=== PATIENT | male | born 1985 | race Caucasian/White ===

== ENCOUNTER 2023-08-17 08:09 | Outpatient (CLI) | payer BC, SELFPAY | END 2023-08-17 08:10 | disposition home or self-care (01) | PROVIDERS: PCP Family Medicine; Visit Provider Family Medicine | DX: Z00.00 Encounter for general adult medical examination without abnormal findings (principal); D22.9 Melanocytic nevi, unspecified; Z13.6 Encounter for screening for cardiovascular disorders | CPT/HCPCS: 80048; 80061 ==

== ENCOUNTER 2024-09-27 08:35 | Outpatient (CLI) | payer BC, SELFPAY | END 2024-09-27 08:36 | disposition home or self-care (01) | PROVIDERS: PCP Family Medicine; Visit Provider Family Medicine | DX: E78.5 Hyperlipidemia, unspecified (principal); Z13.228 Encounter for screening for other metabolic disorders | CPT/HCPCS: 80048; 80061 ==

== ENCOUNTER 2025-06-27 12:52 | Day surgery (SDC) | payer BC, SELFPAY ==
[2025-06-27] VITALS (15 sets, daily range): BP systolic 119–148; BP diastolic 55–83; PULSE 81–106; RESP 14–20; TEMP 36.8–39.4; O2SAT 93–100; BMI 24.1
--- OUTSIDE RECORDS SUMMARY | 2025-06-27 12:54 | XMS_ITS | Clinical Summary ---
Author Organization [employer] [facility] Address [address] [place] [address] Care Team Providers Care Live Truck Technician Name Role Phone Dillon Fung MD Primary Care Provider [phone] Allergies No known active allergies Medications HYDROcodone-ac etaminophen, 5-325 mg, (NORCO) per tabletIndicati ons:Encounter for vasectomy Take 1-2 tablets by mouth every 6 hours if needed for Pain Max acetaminophen dose: 4000 mg in 24 hrs. 15 tablet 9 Active Active Problems No known active problems Social History Tobacco Use Types Packs/Day Years Used Date Smoking Tobacco: Never Smokeless Tobacco: Never Alcohol Use Standard Drinks/Week Comments Yes 0 (1 standard drink = 0.6 oz pur e alcohol) Sex and Gender Information Value Date Recorded Sex Assigned at Not on file Legal Sex Male 9:00 AM CDT Gender Identity Not on file Sexual Orientation Not on file Obstetrics History Last Filed Vital Signs Vital Sign Reading Time Taken Comments Blood Pressure 137/88 05/27/2019 2:17 PM CDT Pulse 58 05/27/2019 2:17 PM CDT Temperature 36.7 C (98.1 F) 05/27/2019 2:17 PM CDT Respiratory Rate - - Oxygen Saturation 99% 05/27/2019 2:1 7 PM CDT Inhaled Oxygen Concentration - - Weight 84.5 kg (186 lb 3.2 oz) 05/27/20 19 2:17 PM CDT Height 185.4 cm (6' 1) 03/27/2019 1:41 PM CDT Per patient Body Mass Index 24.57 03/27/2019 1:41 PM CDT Plan of Treatment Health Maintenance Due Date Last Done Comments Tetanus booster 1997 Depression screening for age 12+ 1998 HIV for age 15-65 2001 Hepatitis C screening for ag e 18-79 2004 Hepatitis B series for 19+ ( 1 of 3 - 19+ 3-dose series) 2005 BMI (ht and wt on same day) for age 18+ 03/27/2020 03/27/2019 Lipids for age 35-44 2021 COVID-19 vaccine series ( - 2023- season) 2024 Influenza Vaccine (#1) 2025 Pneumococcal series for age 6-49 Aged Out No longer eligible based on patient's age to complete this topic Insurance [facility] Care Teams Live Truck Technician Relationship Specialty Start Date End Date Dillon Fung MD [address] [place] [address] PCP - General Family Practice 02/11/19
--- OUTSIDE RECORDS SUMMARY | 2025-06-27 12:54 | XMS_ITS | Clinical Summary ---
Author Organization [facility] Address [address] [place] [address] Care Team Providers Care Data Administrator Name Role Phone Angy Morrison DO Primary Care Provider [phone] Source Comments You are receiving this document as you are listed as the primary care provider,follow-up provider, or the patient has been referred to you for consultation.This is in compliance with the Medicare and[facility],which states Providers who transition their patient to another setting of careor provider of care or refers their patient to another provider of care shouldprovide summary care record for each transition of care or referral. [facility] Allergies No known active allergies Medications No known medications Active Problems No known active problems Social History Tobacco Use Types Packs/Day Years Used Date Smoking Tobacco: Never Smokeless Tobacco: Never Alcohol Use Standard Drinks/Week Comments No 0 (1 standard drink = 0.6 oz pur e alcohol) Sex and Gender Information Value Date Recorded Sex Assigned at Not on file Legal Sex Male 8:32 AM CDT Gender Identity Not on file Sexual Orientation Not on file Last Filed Vital Signs Vital Sign Reading Time Taken Comments Blood Pressure 118/64 07/25/2017 10:54 AM CDT Pulse 53 07/25/2017 10:54 AM CDT Temperature - - Respiratory Rate - - Oxygen Saturation 99% 07/25/2017 10:54 AM CDT Inhaled Oxygen Concentration - - Weight 79.2 kg (174 lb 8 oz) 07/25/2017 10:54 AM CDT Height - - Body Mass Index - - Plan of Treatment Health Maintenance Due Date Last Done Comments Hep C Screening (Preventive Services) 1986 HIV Screening (Preventive Services) 2002 Adult Preventive Visit 2004 DTaP/Tdap/Td Vaccine (1 - Tdap) 2005 HepB Vaccine (1) 2005 Cholesterol 2021 COVID-19 Vaccine (1 - 2023-2 5 season) 2024 Influenza Vaccine (#1) 2025 Zoster/Shingles Vaccine (1 of 2) 2036 HPV Vaccine Aged Out No longer eligi ble based on patient's age to complete this topic HepA Vaccine Aged Out No longer eligi ble based on patient's age to complete this topic Hib Vaccine Aged Out No longer eligi ble based on patient's age to complete this topic IPV (Polio) Vaccine Aged Out No longe r eligible based on patient's age to complete this topic MCV4 Vaccine Aged Out No longer eligi ble based on patient's age to complete this topic Meningococcal B Vaccine Aged Out No l onger eligible based on patient's age to complete this topic Pneumococcal Vaccine Aged Out No long er eligible based on patient's age to complete this topic Insurance BCBS OUT OF STATE Care Teams Data Administrator Relationship Specialty Start Date End Date Angy Morrison DO [address] [place], [place] [id number] PCP - General Family Practice 07/25/17
--- NOTE | 2025-06-27 13:13 | CRLHL7_ITS ---
For Patients: As a result of the Century Cures Act, medical imaging exams and procedure reports are released immediately into your electronic medical record. You may view this report before your referring provider. If you have questions, please contact your health care provider. Indication: Rule out right-sided peritonsillar abscess Technique: Volumetric multidetector CT images of the cervical soft tissues were obtained after the administration of low osmolar intravenous contrast. 85 cc Isovue 370 low osmolar intravenous contrast Comparison: None available. Findings: The partially visualized brain parenchyma is normal in attenuation without evidence of abnormal enhancement. The orbits and their contents are within normal limits. The paranasal sinuses are clear. The mastoid air cells are clear. The nasopharynx is unremarkable. The fossae of Rosenmuller are clear. There is moderate enlargement of the right greater than left palatine tonsils commensurate with tonsillitis with a thick-walled rim enhancing fluid collection along the lateral aspect of the right pharyngeal wall measuring 2.2 x 1.7 centimeters with superior extension into the medial aspect of the soft palate. Abscesses best seen in its entirety on series 5, image 49 measuring 1.9 x 3.0 centimeters in AP and craniocaudal dimensions. The hypopharynx is clear. The deep spaces of the neck are otherwise preserved. The vocal folds are nonthickened with symmetrical appearance. The thyroid gland is normal in attenuation. Enlarged right greater than left cervical lymph nodes are seen within the jugulodigastric and upper cervical chains. The jugular veins are patent. The carotid arteries demonstrate no significant atherosclerotic narrowing. The lung apices are clear. Mild straightening of the normal cervical lordosis. Impression: 1. Demonstration of enlargement and enhancement of the rdxfz-ficfjtc-lbni-left palatine tonsils commensurate with tonsillitis/pharyngitis with a thick-walled rim enhancing peritonsillar fluid collection along the lateral aspect of the tonsil/right pharyngeal wall extending superiorly into the soft palate measuring up to 3.0 centimeters in greatest AP dimension seen best on sagittal image series 5, 49. Extension to the soft palate is best visualized on series 4, image 19. Please note that all CT scans at this facility use dose modulation, iterative reconstruction, and/or weight-based dosing when appropriate to reduce radiation dose to as low as reasonably achievable. Dictated by Logan Edge MD @ 06/27/2025 3:25:03 PM (Electronically Signed)
--- NOTE | 2025-06-27 13:16 | ED.GENADULT ---
HPI - General Adult General Chief complaint: Sore Throat Stated complaint: peritonsillar abscess Time Seen by Provider: 06/27/25 12:54 History of Present Illness HPI narrative: Patient is a pleasant 40 year white male was seen in urgent care and sent to the ER for fear of a peritonsillar abscess. He has got a positive strep test by their report. He has had some trouble opening his mouth but is able to open it but it is painful. His pain is on the right side of his throat. He has had difficulty swallowing but is able to swallow, no airway difficulty at this point. He has not had any history of throat infections or severe illnesses. He is on escitalopram. He last ate at 8:00 a.m. this morning Related Data Home Medications ?Medication ?Instructions ?Recorded ?Confirmed escitalopram oxalate 10 mg tablet 10 mg PO DAILY 06/27/25 06/27/25 Previous Rx's ?Medication ?Instructions ?Recorded oxycodone 5 mg/5 mL oral solution 5 mg (5 mL) PO Q6H PRN pain #100 mL 06/27/25 Allergies Allergy/AdvReac Type Severity Reaction Status Date / Time No Known Drug Allergies Allergy Verified 06/27/25 12:08 Review of Systems Status of ROS: Reports: 6 or more systems reviewed and unremarkable except as noted in History and below PFSH PFSH Social History Smoking Status: Never smoker How often do you have a drink containing alcohol: 2-4 times a month AUDIT-C Alcohol total score: 2 Non-prescribed substance use: denies use Exam Narrative: Exam Narrative: Objective: Patient is afebrile in no marked distress He does have swollen peritonsillar area on the right with some exudate mild redness throughout his throat. Neck is supple Const: Vital Signs, click to edit/add: Vital Signs - 24 hr 06/27/25 12:58 06/27/25 14:44 Temperature 98.3 F Pulse Rate [Pulse Oximeter] 98 81 Respiratory Rate 18 18 Blood Pressure [Ri ght Upper Arm] 135/83 Pulse Oximetry 96 100 Oxygen Delivery Me thod Room Air Room Air Course Vital Signs Vital signs: Initial Vital Signs Temperature 98.3 F 06/27/25 12:58 Temperature Source Temporal Artery Scan 06/27/25 12:58 Pulse Rate 98 06/27/25 12:58 Pulse Rhythm Regular 06/27/25 12:58 Respiratory Rate 18 06/27/25 12:58 Blood Pressure 135/83 06/27/25 12:58 Blood Pressure Mean 100 06/27/25 12:58 Blood Pressure Position Sitting 06/27/25 12:58 Pulse Oximetry 96 06/27/25 12:58 Oxygen Delivery Method Room Air 06/27/25 12:58 Vital Signs Temperature 98.3 F 06/27/25 12:58 Pulse Rate 98 06/27/25 12:58 Respiratory Rate 18 06/27/25 12:58 Blood Pressure 135/83 06/27/25 12:58 Pulse Oximetry 96 06/27/25 12:58 Oxygen Delivery Method Room Air 06/27/25 12:58 Temperature 99.6 F 06/27/25 19:47 Pulse Rate 85 06/27/25 20:15 Respiratory Rate 17 06/27/25 20:15 Blood Pressure 119/65 06/27/25 20:15 Pulse Oximetry 93 06/27/25 20:15 Oxygen Delivery Method Room Air 06/27/25 20:15 Medications Administered Medications: Discontinued Medications Generic Name Dose Route Start Last Admin Trade Name Freq PRN Reason Stop Dose Admin Sodium Chloride 1,000 mls @ 6,000 mls/hr 06/27/25 13:15 06/27/25 16:28 0.9 % Sodium Chloride 1000 Ml IV 06/27/25 13:24 Infused .Q10M [facility] Infusion Piperacillin Sod/Tazobactam 100 mls @ 200 mls/hr 06/27/25 13:25 06/27/25 15:45 Sod 3.375 gm/ Sodium Chloride IVPB 06/27/25 13:54 Infused ONCE ONE Infusion Lactated Ringer's 1,000 mls @ 100 mls/hr 06/27/25 19:20 06/27/25 19:33 Lactated Ringers 1000 Ml IV 30 mls/hr .Q10H [facility] Infusion Ketorolac Tromethamine 15 mg 06/27/25 18:01 06/27/25 18:09 Ketorolac 15 Mg/Ml Inj IVP 06/27/25 18:02 15 mg ONCE ONE Administration Morphine Sulfate 4 mg 06/27/25 13:13 06/27/25 13:47 Morphine 4 Mg/Ml Inj IVP 06/27/25 13:14 4 mg ONCE ONE Administration Morphine Sulfate 4 mg 06/27/25 16:57 06/27/25 17:00 Morphine 2 Mg/Ml Inj IVP 06/27/25 16:58 4 mg ONCE ONE Administration Medical Decision Making MDM Narrative Medical decision making narrative: [age] year white male with right peritonsillar swelling rule out peritonsillar abscess, positive strep test. Patient will get a CT scan of soft tissue with IV contrast of his neck, IV morphine IV Unasyn, IV fluid. ENT consult as needed. Addendum 3:30 p.m.: The patient has a 3 x 2 cm abscess in the right peritonsillar area. Discussed with ENT Dr. Zamudio in who will either he or Dr. Fox come in to take care of this. He has been given pain control and antibiotic IV. He will be kept NPO. Discharge Plan Discharge Clinical Impression: Acute streptococcal pharyngitis, Abscess, peritonsillar Activity Level: No strenuous activity Discharge Diet: Full Liquid
[2025-06-27] MEDS: MORPHINE 4 MG/ML INJ IVP (13:47)
[2025-06-27] MEDS: PIPERACILLIN/TAZOBACTAM 3.375 GM in 0.9 % SODIUM CHLORIDE Mini-bag 100 ML IVPB (15:05)
[2025-06-27] MEDS: LACTATED RINGERS 1000 ML 1,000 ML 100 ML IV (18:20)
--- NOTE | 2025-06-27 19:13 | W.PM.ENTPROC ---
Procedure Note Time Seen by Provider: 15:00 Date Seen: 06/27/25 Date of procedure: 06/27/25 Pre-op diagnosis: right peritonsillar abscess Post-op diagnosis: same Procedure: Wade tonsillectomy right Patient was seen emergency room with CT scan demonstrating 3 by 2 cm right peritonsillar abscess. Patient was strep positive in the clinic. Scan was reviewed. Discussed diagnosis right peritonsillar abscess with patient. Discussed need for incision and drainage with possible tonsillectomy. Discussed goals, risks and potential complications. He elected to proceed. Signed consent was obtained. After adequate general oral endotracheal anesthesia, the mouth gag was inserted and the oropharynx was exposed. Patient had exudative tonsillitis with right peritonsillar swelling. With the needlepoint cautery, incision was made in the superior anterior pillar lateral along the edge of the visible and palpable deep tonsil. Tonsil capsule was identified and with blunt dissection around the capsule was unable to enter a abscess cavity. For this reason I elected to proceed with Wade tonsillectomy. The remainder of the anterior tonsillar pillar was incised with the needlepoint cautery and the tonsil was dissected free with the electrode blunt dissection using the spatula tip and suction tip cautery. In the inferior aspect of the fossa the abscess cavity was entered which appeared to be deep to the muscle. Single amount of pus was removed. Culture for Chinedu bacteria and sensitivities was obtained. The remainder of the tonsil was then removed. Hemostasis was achieved with the suction cautery. The abscess cavity was irrigated with saline. Right tonsil was sent to pathology. Patient tolerated procedure well, was awakened and extubated in the operating room and returned to the recovery room in stable condition. Total estimated blood loss was approximately 10 mL. Anesthesia Type: General Surgeon: Joseph Fox MD Estimated blood loss (mL): 10.0 Pathology: specimen obtained, sent to pathology Condition: stable
--- NOTE | 2025-06-27 19:27 | P.ANES_ITS ---
Anesthesia Charges Start Date/Time Anesthesia Start Date: 06/27/25 Anesthesia Start Time: 18:20 Stop Date/Time Anesthesia Stop Date: 06/27/25 Anesthesia Stop Time: 19:19 Summary Emergency: CLASS A LINEMAN Coding CPT Codes CPT Codes: ANESTH PROCEDURE ON MOUTH - 28575 ([id number]) P2 - PATIENT W/MILD SYST DISEASE, QZ - CLASS A LINEMAN SVC W/O GROCERY STORE ASSOCIATE BY Additional Codes: Summary - Emergency: CLASS A LINEMAN ([id number])
--- NOTE | 2025-06-27 19:27 | W.ANESCHARGE ---
Anesthesia Charges Start Date/Time Anesthesia Start Date: 06/27/25 Anesthesia Start Time: 18:20 Stop Date/Time Anesthesia Stop Date: 06/27/25 Anesthesia Stop Time: 19:19 Summary Emergency: SHAKE LOADER Coding CPT Codes CPT Codes: ANESTH PROCEDURE ON MOUTH - 30906 ([id number]) P2 - PATIENT W/MILD SYST DISEASE, QZ - SHAKE LOADER SVC W/O HVAC SALES ENGINEER BY Additional Codes: Summary - Emergency: SHAKE LOADER ([id number])
--- NOTE | 2025-06-27 19:36 | SUR.PHASEI ---
ok to bring back per fondant machine operator; vs stable, patient meets pacu d/c criteria
--- NOTE | 2025-06-27 22:42 | PC.NURSE ---
Shift note ([id number]): Patient arrived from OR at 1940. Awake, alert and oriented. Accompanied by Joaquina who remained at bedside. Afebrile. VSS. Toleratered ice chips and water. Rated pain 0-3/10 since arriving to floor. Pt denied pain and nausea on discharge. IV removed and pt was discharged at 2223. Pt was wheeled down to ED door by staff and left with .
== END 2025-06-27 22:24 | disposition home or self-care (01) ==
LOC: ED 17:19 → OR 18:13
PROVIDERS: Emergency Provider Family Medicine; PCP Family Medicine; Visit Provider Otolaryngology
PROC: 0C9PXZZ Drainage of Tonsils, External Approach (ICD-10-PCS; CPT 42700; principal; 2025-06-27 16:45)
DX: J36 Peritonsillar abscess (principal)
CPT/HCPCS: 42826; 00170; 70491; 87070; 87075; 87186; 87205; 88304; 99140; 99284; 99285; J0330; J1100; J1885; J2250; J2270; J2405; J2543; J2704; J3010; J7030; J7120; Q9967

== ENCOUNTER 2025-07-02 22:28 | Day surgery (SDC) | payer BC, SELFPAY ==
--- OUTSIDE RECORDS SUMMARY | 2025-07-02 22:32 | XMS_ITS | Clinical Summary ---
Author Organization [facility] Address [address] [place] [address] Care Team Providers Care Deburring And Tooling Machine Operator Name Role Phone Angy Morrison DO Primary Care Provider [phone] Source Comments You are receiving this document as you are listed as the primary care provider,follow-up provider, or the patient has been referred to you for consultation.This is in compliance with the Medicare and[facility],which states Providers who [...] - Tdap) 2005 HepB Vaccine (1) 2005 HPV Vaccine (1 - 3-dose SCDM series) 2013 Cholesterol 2021 COVID-19 Vaccine (1 - 2023-2 5 season) 2024 Influenza Vaccine (#1) 2025 Zoster/Shingles Vaccine (1 of 2) 2036 HepA Vaccine Aged Out No longer eligi [...] patient's age to complete this topic [place] [address] Care Teams Deburring And Tooling Machine Operator Relationship Specialty Start Date End Date Angy Morrison DO [address] [place] [address] PCP - General Family Practice 07/25/17
--- OUTSIDE RECORDS SUMMARY | 2025-07-02 22:32 | XMS_ITS | Clinical Summary ---
Author Organization [employer] [facility] Address [address] [place] [address] Care Team Providers Care Tiller Man Name Role Phone Dillon Fung MD Primary Care Provider [phone] Allergies No known active allergies Medications HYDROcodone-ac etaminophen, 5-325 mg, (NORCO) per tabletIndicati ons:Encounter for vasectomy Take 1-2 tablets by mouth every 6 hours if needed for Pain Max acetaminophen dose: 4000 mg in 24 hrs. 15 tablet 9 Active Active Problems No known active problems Encounters Date Type Department Care Team Description 06/30/2025 Lab Requisition [facility] [phone] Joseph Fox MD from Last 3 Months Social History Tobacco Use Types Packs/Day Years [...] age 35-44 2021 COVID-19 vaccine series ( season) 2024 Influenza Vaccine (#1) 2025 Pneumococcal series for age 6-49 Aged Out No longer eligible based on patient's age to complete this topic Procedures Procedure Name Priority Date/Time Associated Diagnosis Comments PATH TISSUE EXAM Routine 06/27/2025 6:51 PM CDT from Last 3 Months Results * PATH TISSUE EXAM (06/27/2025 6:51 PM CDT) Case Report Pathology Report Case: [id number] Authorizing Provider: Joseph Fox MD Collected: 06/27/2025 1851 Ordering Location: [facility] Received: 06/30/2025 1404 Pathologist: Wili Castellon MD Specimen: Right Tonsil 07/02/2025 11:00 AM CDT [facility] Final Diagnosis A) TONSIL, RIGHT, TONSILLECTOMY: 1. Tonsillar lymphoepithelial tissue with acute suppurative inflammation, consistent with clinical impression of abscess 2. Negative for neoplasm on these sections 07/02/2025 11:00 AM CDT [facility] at 1100 CDT Clinical Information peritonsillar abscess 07/02/2025 11:00 AM CDT [facility] Gross Description A) Received in formalin labeled with the patient's name and right tonsil, is a 3.4 x 2.1 x 1.6 cm pink-hammonds ovoid palatine tonsil. It is partially surfaced by glistening cribriform mucosa. The resection margin consists of red-purple, hemorrhagic, ragged and semifriable tissue, which is inked black. The cut surfaces are pink and rubbery with no masses or lesions identified. Road Production General Manager sections are submitted in 3 cassettes. MAIDA 06/30/2025 07/02/2025 11:00 AM CDT [facility] Microscopic Description The final diagnosis is based on microscopic examination of appropriate sections of all specimens. 07/02/2025 11:00 AM CDT [facility] Additional Information Interpreted at [facility] [address] [facility] [address], [place] [address] 07/02/2025 11:00 AM CDT [facility] Other (Right Tonsil) 06/27/2025 6:51 PM CDT 06/30/2025 2:04 PM CDT us Joseph Fox MD PATHOLOGY/CYTOLOGY Final R esult [facility] [address] [place] [address], from Last 3 Months Insurance [facility] Care Teams Tiller Man Relationship Specialty Start Date End Date Dillon Fung MD [address] [address] PCP - General Family Practice 02/11/19
[2025-07-02 22:33] VITALS: BP 132/83; PULSE 63; RESP 18; TEMP 36.8; O2SAT 99; BMI 23.7
--- NOTE | 2025-07-02 22:51 | ED_ITS ---
HPI - General Adult General Date Seen: 07/02/25 Chief complaint: Sore Throat Stated complaint: tonsil surg 06/30 , bleeding Time Seen by Provider: 07/02/25 22:46 History of Present Illness HPI narrative: Very pleasant 40-year-old gentleman is 5 days status post right tonsillectomy and drainage of right peritonsillar abscess. Surgery was done here in [place] by Dr. Fox. Patient had been recovering well at home. He is using oxycodone for postoperative pain and he is taking his antibiotic. This evening he was getting ready for bed when he had onset of bleeding. He had bleeding from his right tonsil indicate feel blood going down his throat. He spit out probably half a cup of red blood at home. He called the emergency number on his ENT discharge paperwork and was told to come straight here to the ER. On the way here his bleeding stopped, but now has restarted. He is spitting out small volumes of bright red blood here in the ER. He is otherwise feeling fine. No lightheadedness. No dizziness. No significant pain. No fever. No trouble breathing. He is not anticoagulated. Related Data Home Medications ?Medication ?Instructions ?Recorded ?Confirmed escitalopram oxalate 10 mg tablet 10 mg PO DAILY 06/2707/02/25 Previous Rx's ?Medication ?Instructions ?Recorded oxycodone 5 mg/5 mL oral solution 5 mg (5 mL) PO Q6H P RN pain #100 mL 06/27/25 Allergies Allergy/AdvReac Type Severity Reaction Status Date / Time No Known Drug Allergies Allergy Verified 07/02/25 22:33 PFSH PFS Social History Smoking Status: Never smoker Do you use any of these nicotine containing products: None How often do you have a drink containing alcohol: 2-4 times a month How often do you have six or more drinks on one occasion: Never AUDIT-C Alcohol total score: 2 Non-prescribed substance use: denies use service: No Exam Narrative: Exam Narrative: Constitutional: Appears well-developed and well-nourished. Alert. Conversant. Non toxic. Remembers me from last week. HENT: Head: Atraumatic. Nose: Nose normal. Mouth/Throat: Oral mucosa is clear and moist. no trismus. Left tonsil looks pretty normal. He is status post right tonsillectomy. There is a dark red clot of blood in the right tonsillar bed. I do not see any active bleeding a as I do my initial exam but as were talking he does than start bleeding in spitting up bright red blood. He spits up small volumes, totaling perhaps a tbsp or so during the subsequent 5 minutes. Eyes: Conjunctivae normal. EOM normal. Pupils equal, round, and reactive to light. No scleral icterus. Neck: Normal range of motion. Neck supple. No tracheal deviation present. Cardiovascular: Normal rate, regular rhythm. No gallop. No friction rub. No murmur heard. Symmetric radial artery pulses Pulmonary/Chest: Effort normal. No stridor. No respiratory distress. No wheezes. No rales. No rhonchi . Musculoskeletal: RUE: Normal range of motion. No tenderness. No deformity LUE: Normal range of motion. No tenderness. No deformity RLE: Normal range of motion. No edema. No tenderness. No deformity LLE: Normal range of motion. No edema. No tenderness. No deformity Neurological: Alert and oriented to person, place, and time. Normal strength. CN II-VII intact. No sensory deficit. GCS eye subscore is 4. GCS verbal subscore is 5. GCS motor subscore is 6. Normal coordination Skin: Skin is warm and dry. No rash noted. No pallor. Normal capillary refill. Psychiatric: Normal mood. Normal affect. Const: Vital Signs, click to edit/add: Vital Signs - 24 hr 07/02/25 22:33 07/03/25 00:06 07/03/25 00:10 Temperature 98.2 F 97.1 F L Pulse Rate 72 65 Pulse Rate [Pulse Oximeter] 63 Respiratory Rate 18 12 14 Blood Pressure 156/96 H 150/94 H Blood Pressure [Le ft Arm] Blood Pressure [Ri ght Upper Arm] 132/83 Pulse Oximetry 99 98 97 Oxygen Delivery Me thod Room Air Room Air 07/03/25 00:15 07/03/25 00:20 07/03/25 00:25 Temperature Pulse Rate 64 57 L 55 L Pulse Rate [Pulse Oximeter] Respiratory Rate 12 14 16 Blood Pressure 150/96 H 136/85 146/78 H Blood Pressure [Le ft Arm] Blood Pressure [Ri ght Upper Arm] Pulse Oximetry 96 96 97 Oxygen Delivery Me thod 07/03/25 00:30 07/03/25 00:35 07/03/25 00:40 Temperature 97.2 F L 96.8 F L Pulse Rate 51 L 52 L Pulse Rate [Pulse Oximeter] 52 L Respiratory Rate 17 16 18 Blood Pressure 133/85 130/71 Blood Pressure [Le ft Arm] 117/74 Blood Pressure [Ri ght Upper Arm] Pulse Oximetry 95 95 96 Oxygen Delivery Me thod Room Air 07/03/25 01:25 07/03/25 02:57 Temperature 96.5 F L 97.0 F L Pulse Rate Pulse Rate [Pulse Oximeter] 63 53 L Respiratory Rate 18 16 Blood Pressure Blood Pressure [Le ft Arm] 117/71 153/89 H Blood Pressure [Ri ght Upper Arm] Pulse Oximetry 95 98 Oxygen Delivery Me thod Room Air Room Air Course Course ED Course: As I am doing my exam I received a phone call from Dr. Fox, ENT. Dr. Fox is already on his way here to the hospital and inquires about how the patient is doing. Dr. Fox indicates he will be here in about 25 or 30 minutes and would like to to take the patient to the OR. IV was is inserted. Labs drawn for CBC and type and screen. Patient is otherwise hemodynamically stable. 1 L of IV crystalloid. We notified the surgery treatment anesthesia. There is another patient here in the ER he needs urgent surgery for bowel obstruction. Based on the fact that the patient is currently bleeding, he will have to take precedence and go to the OR 1st. Anesthesia will try to call in a backup team as well. Recheck-11 10. Sitting up in bed. Wearing a gown. IV established. Saline bolus running. Labs pending. Patient says he is feeling better. Still minimal trickling blood loss. His only had a couple of tbsp of blood spit out into his emesis bag since he arrived here. Seems stable for now. ENT still on their way to the hospital. Recheck-CBC shows a hemoglobin of 14.9, platelet count 259. He is not anticoagulated. Lactic acid is normal at 0.6. Vital Signs Vital signs: Initial Vital Signs Temperature 98.2 F 07/02/25 22:33 Temperature Source Temporal Artery Scan 07/02/25 22:33 Pulse Rate 63 07/02/25 22:33 Respiratory Rate 18 07/02/25 22:33 Blood Pressure 132/83 07/02/25 22:33 Blood Pressure Mean 99 07/02/25 22:33 Pulse Oximetry 99 07/02/25 22:33 Oxygen Delivery Method Room Air 07/02/25 22:33 Vital Signs Temperature 98.2 F 07/02/25 22:33 Pulse Rate 63 07/02/25 22:33 Respiratory Rate 18 07/02/25 22:33 Blood Pressure 132/83 07/02/25 22:33 Pulse Oximetry 99 07/02/25 22:33 Oxygen Delivery Method Room Air 07/02/25 22:33 Temperature 97.0 F L 07/03/25 02:57 Pulse Rate 53 L 07/03/25 02:57 Respiratory Rate 16 07/03/25 02:57 Blood Pressure 153/89 H 07/03/25 02:57 Pulse Oximetry 98 07/03/25 02:57 Oxygen Delivery Method Room Air 07/03/25 02:57 Medications Administered Medications: Discontinued Medications Generic Name Dose Route Start Last Admin Trade Name Freq PRN Reason Stop Dose Admin Epinephrine HCl 1 mg 07/02/25 23:55 07/02/25 23:55 Epinephrine 1 Mg/Ml Inj IRRIGATION 07/02/25 23:56 1 mg ONCE ONE Administration Fentanyl 50 mcg 07/02/25 23:53 07/03/25 00:26 Fentanyl 100 Mcg/2 Ml Inj IVP 50 mcg Q5M PRN Administration Sodium Chloride 1,000 mls @ 1,000 mls/hr 07/02/25 23:00 07/02/25 23:00 0.9 % Sodium Chloride 1000 Ml IV 07/02/25 23:59 1,000 mls/hr .Q1H CORY Administration Lactated Ringer's 1,000 mls @ 125 mls/hr 07/02/25 23:45 07/03/25 00:38 Lactated Ringers 1000 Ml IV 30 mls/hr .Q8H CORY Infusion Lactated Ringer's 1,000 mls @ 100 mls/hr 07/03/25 00:20 07/03/25 00:45 Lactated Ringers 1000 Ml IV 100 mls/hr .Q10H CORY Administration Sodium Chloride 20 ml 07/02/25 23:55 07/02/25 23:48 0.9 % Sodium Chl 20 Ml Vial INJECTION 07/02/25 23:56 20 ml ONCE ONE Administration Medical Decision Making MDM Narrative Medical decision making narrative: 40-year-old male presenting to the ER today on postop day 5 for post tonsillectomy bleeding. It does look like his eschar has fallen off and he does have a clot on my initial exam subsequently had small volume active bleeding here in the ER. Fortunately he is hemodynamically stable. He is not symptomatic from anemia or blood loss. He is not febrile. He is not anticoagulated. Discussed with ENT, who were already aware of the patient and other way to the ER. ENTs plan will be to take him to the OR for cauterization. Discussed with Anesthesia will also evaluate. Lab Data Labs: Lab Results 07/02/25 Range/Units 23:00 WBC 11.69 H (4.50-11.00) K/uL RBC 5.07 (4.30-5.90) m/uL Hgb 14.9 (13.5-17.5) gm/dL Hct 43.9 (37.0-53.0) % MCV 87 (80-100) fL MCH 29 (26-34) pg MCHC 34 (32-36) gm/dL RDW Coeff of Kaylin 11.8 (11.5-15.5) % Plt Count 259 (140-440) K/uL Neut % (Auto) 56.6 (42.0-72.0) % Lymph % (Auto) 27.9 (20-44) % Mcleod % (Auto) 5.2 (0.0-11.0) % Eos % (Auto) 2.0 (0.0-7.0) % Baso % (Auto) 0.3 (0.0-3.0) % Neut # (Auto) 6.60 (1.7-7.0) K/uL Lymph # (Auto) 3.30 H (0.90-2.90) K/uL Mcleod # (Auto) 0.60 (0.00-0.90) K/UL Eos # (Auto) 0.20 (0.00-0.50) K/uL Baso # (Auto) 0.00 (0.00-0.30) K/uL Abs Immat Gran (auto) 0.90 H (0.00-0.30) K/uL Imm/Tot Granulo (auto) 8.0 % Sodium 138 (135-149) mmol/L Potassium 4.0 (3.6-5.1) mmol/L Chloride 103 (96-114) mmol/L Carbon Dioxide 25 (20-32) mmol/L Anion Gap 10 (7-15) mEq/L BUN 23 (5-24) mg/dL Creatinine 1.1 (0.5-1.5) mg/dL Estimated Creat Clear 101.89 Estimated GFR 88 ml/min Glucose 92 (60-115) mg/dL Lactate 0.6 (0.5-1.9) mmol/L Calcium 9.7 (8.4-10.6) mg/dL Blood Type A Positive Antibody Screen NEGATIVE Discharge Plan Discharge Clinical Impression: Post-tonsillectomy hemorrhage Patient Disposition: XFER to OR Discharge Comment: Pt taken to OR by Dr. Fox
[2025-07-02 23:00] LABS: Lactate* 0.6 mmol/L (0.5-1.9)
[2025-07-02 23:02] LABS: Hematocrit 43.9 % (37.0-53.0); Hemoglobin* 14.9 gm/dL (13.5-17.5); Immature Granulocytes Pct Auto 8.0 %; Mean Corpuscular HGB Conc 34 gm/dL (32-36); Mean Corpuscular Hemoglobin 29 pg (26-34); Mean Corpuscular Volume 87 fL (80-100); RDW Coefficient of Variation % 11.8 % (11.5-15.5); Red Blood Count 5.07 m/uL (4.30-5.90); White Blood Count* 11.69 K/uL (4.50-11.00)
[2025-07-02 23:03] LABS: Immature Granulocytes Abs Auto 0.90 K/uL (0.00-0.30); Lymphocytes Absolute Auto 3.30 K/uL (0.90-2.90); Slide Review Reflex No
[2025-07-02 23:15] LABS: Chloride* 103 mmol/L (96-114); Potassium* 4.0 mmol/L (3.6-5.1); Sodium* 138 mmol/L (135-149)
[2025-07-02 23:18] LABS: Blood Urea Nitrogen* 23 mg/dL (5-24); Creatinine* 1.1 mg/dL (0.5-1.5); Est. Creatinine Clearance* 101.89; Estimated Glomerular Filt Rate 88 ml/min
[2025-07-02 23:19] LABS: Anion Gap 10 mEq/L (7-15); Calcium* 9.7 mg/dL (8.4-10.6); Carbon Dioxide* 25 mmol/L (20-32); Glucose* 92 mg/dL (60-115)
[2025-07-02] MEDS: LACTATED RINGERS 1000 ML 1,000 ML 125 ML IV (23:39)
[2025-07-02] MEDS: 0.9 % SODIUM CHL 20 ml vial INJECTION (23:48)
[2025-07-03] VITALS (10 sets, daily range): BP systolic 117–156; BP diastolic 71–96; PULSE 51–72; RESP 12–18; TEMP 35.8–36.2; O2SAT 95–98
--- NOTE | 2025-07-03 00:09 | P.ENTPROC_ITS ---
Procedure Note Time Seen by Provider: 23:30 Date Seen: 07/02/25 Date of procedure: 07/03/25 Pre-op diagnosis: Right peritonsillar abscess post tonsillectomy bleed Post-op diagnosis: same Procedure: Patient underwent a right Wade tonsillectomy for peritonsillar abscess 5 days ago. This evening he had onset of bleeding. He was seen in the ER and on exam he had an organized clot in the right tonsil fossa. Some oozing of fresh blood. It was recommended he undergo exam under anesthesia with cautery control right tonsillectomy bleed. Procedure was discussed in detail with goals, risks and potential complications. Signed consent was obtained. Patient was brought to the operating room and after adequate general endotracheal anesthesia was prepped and draped in the supine Laverne position. Mouth gag was inserted the oropharynx was exposed. Patient had a large organized clot in the tonsillar fossa with some oozing of blood in the inferior fossa. Clot was suctioned clear and the bleeding site was identified and was easily controlled with suction cautery without difficulty. There was granular tissue in the tonsil fossa with some scattered oozing bleeding sites. These were cauterized with the suction cautery without difficulty. Stomach was suctioned clear with [place] sump to with clear gastric contents. Patient was observed for approximately 10 minutes without any further bleeding. mouth gag was removed and patient was extubated in the operating room and returned recovery room in stable condition. Blood loss was minimal, approximately 1 mL Anesthesia Type: General Surgeon: Joseph Fox MD Estimated blood loss (mL): 1.0 Pathology: none sent Condition: stable
--- NOTE | 2025-07-03 00:13 | P.ANES_ITS ---
Anesthesia Charges Start Date/Time Anesthesia Start Date: 07/02/25 Anesthesia Start Time: 23:39 Stop Date/Time Anesthesia Stop Date: 07/03/25 Anesthesia Stop Time: 00:11 Summary Emergency: ENGINEER PROCESS Coding CPT Codes CPT Codes: ANESTH PROCEDURE ON MOUTH - 11119 ([id number]) P2 - PATIENT W/MILD SYST DISEASE, QZ - ENGINEER PROCESS SVC W/O NATIONAL SALES CONSULTANT BY Additional Codes: Summary - Emergency: ENGINEER PROCESS ([id number])
--- NOTE | 2025-07-03 00:13 | W.ANESCHARGE ---
Anesthesia Charges Start Date/Time Anesthesia Start Date: 07/02/25 Anesthesia Start Time: 23:39 Stop Date/Time Anesthesia Stop Date: 07/03/25 Anesthesia Stop Time: 00:11 Summary Emergency: LIQUEFIED [employer] OPERATOR Coding CPT Codes CPT Codes: ANESTH PROCEDURE ON MOUTH - 65284 ([id number]) P2 - PATIENT W/MILD SYST DISEASE, QZ - LIQUEFIED NATURAL [employer] OPERATOR SVC W/O EMERGENCY MANAGEMENT CONSULTANT BY Additional Codes: Summary - Emergency: LIQUEFIED NATURAL GAS PLANT OPERATOR ([id number])
[2025-07-03] MEDS: LACTATED RINGERS 1000 ML 1,000 ML 100 ML IV (00:45)
--- NOTE | 2025-07-03 04:34 | PC.NURSE ---
Patient arrived from PACU at 2039 on room bed. Awake, alert and oriented. Joaquina was here waiting in room and remained at bedside until discharged. Tolerated ice chips and popsicle. Rated pain in throat 0-4/10 and c/o headache rated 2-4/10. Decline pain medications when offered. Reported spitting out pink tinged salvia; no bright red blood or clots noted. Patient discharged at 319. IV was removed at that time. Maintenance Scheduler wheeled patient in wheelchair to ED entrance/exit. Patient left hospital with .?
== END 2025-07-03 03:20 | disposition home or self-care (01) ==
LOC: ED 23:09 → OR 23:41 → MEDSURG 07-03 00:53
PROVIDERS: Emergency Provider Emergency Medicine; PCP Family Medicine; Visit Provider Otolaryngology
PROC: (CPT 42960; principal; 2025-07-02 23:45)
DX: J95.830 Postprocedural hemorrhage of a respiratory system organ or structure following a respiratory system procedure (principal)
CPT/HCPCS: 42962; 00170; 36415; 80048; 83605; 85025; 86850; 86900; 86901; 87077; 99140; 99283; 99285; J0169; J0330; J1100; J2405; J2704; J3010; J7030; J7120